=== PATIENT | male | born 1945 | race Caucasian/White ===

== ENCOUNTER 2017-01-04 15:00 | Inpatient (IN) | payer OTHER ==
[~2017-01-04] VITALS: Ht 182.8 cm; Wt 76.4 kg
--- NOTE | ~2017-01-04 | PR ---
[place], [place] PROGRESS NOTE NAME: KAREN HANSON UNIT #: [id number] ROOM: 403 DOCTOR: MARV BALLARD,ZAC BIRTHDATE: [birth year] DOS: 01/06/2017 ADDENDUM This note is an addendum to the note dictated by Dr. Colt Kimball. I personally examined and assessed the patient. Case was discussed with Dr. Kimball. Dr. Kimball's examination and assessment reflects my work. OBJECTIVE: HEART: The focused cardiac examination of the heart with regular rate and rhythm, no S3. Grade 1/6 systolic murmur. EXTREMITIES: Showed no edema. IMPRESSION: 1. Near syncope, possibly due to hypotension. 2. Cardiomyopathy, stable. 3. Hypotension, borderline. 4. Status post AICD with normal function. 5. CAD. RECOMMENDATIONS: 1. We will decrease lisinopril to 10 mg and monitor blood pressures at home. 2. If the systolic blood pressure less than 100, we will wide his Coreg and lisinopril. 3. We will follow with Dr. Maravilla or [facility] in a couple of weeks and also with Dr. Juarez for the ICD followups. ZAC FAIR MD CM:PNTRANS [id number] ZAC FAIR MD 01/08/17 1459 interface
[2017-01-04 15:00] VITALS: BP 138/87
[~2017-01-04 15:00] MED LIST: ATENOLOL50 MG PO; CRESTOR40 MG PO; LISINOPRIL5 MG PO; LORAZEPAM0.5 MG PO; MIRTAZAPINE15 M1 PO; NITROGLYCERIN0.4 MG PO; NORVASC10 MG PO; OMEPRAZOLE DR20 M1 PO; ZOLOFT100 MG PO
[2017-01-04 15:30] VITALS: BP 128/84
[2017-01-04 15:40] LABS: BASO # 0.1 10*3/uL (0.0-0.1); BASO % 1.1 % (0.0-1.0); EOS # 0.1 10*3/uL (0.0-0.4); HEMATOCRIT 34.2 % (42.0-52.0); HEMOGLOBIN 11.2 g/dl (14.0-18.0); LYMPH # 1.3 10*3/uL (1.3-4.4); LYMPH % 29.9 % (27.0-41.0); MEAN CELL VOLUME 82.8 fl (80.0-94.0); MEAN CORPUSCULAR HGB 27.1 pg (27.0-31.0); MEAN CORPUSCULAR HGB CONC 32.7 g/dl (33.0-37.0); MONO # 0.5 10*3/uL (0.1-1.0); MONO % 12.2 % (3.0-9.0); NEUT # 2.4 10*3/uL (2.3-7.9); NEUT % 54.6 % (47.0-73.0); PLATELET COUNT AUTOMATED 136 10*3/uL (130-400); RED BLOOD COUNT 4.13 10*6/uL (4.50-5.90); RED CELL DISTRI WIDTH 15.9 % (0-14.5); WHITE BLOOD COUNT 4.4 10*3/uL (4.8-10.8)
[2017-01-04 15:49] LABS: PROTHROMBIN TIME 10.6 SECONDS (9.0-12.4)
[2017-01-04 15:56] LABS: ALBUMIN 3.7 gm/dl (3.1-4.5); ALKALINE PHOSPHATASE 63 U/L (45-117); BILIRUBIN, TOTAL 0.4 mg/dl (0.2-1.0); BUN 19 mg/dl (7-24); CARBON DIOXIDE 25 mmol/L (21-32); CHLORIDE 106 mmol/L (98-107); CKMB 2.9 ng/ml (0.5-3.6); CPK 143 U/L (39-308); EST GLOM FILT AFRICAN AMERICAN > 60 ml/min; GLUCOSE 77 mg/dL (65-99); MAGNESIUM 2.4 mg/dL (1.5-2.1); POTASSIUM 4.3 mmol/L (3.5-5.1); SGOT/AST 14 IU/L (3-35); SGPT/ALT 21 U/L (12-78); SODIUM 140 mmol/L (136-145); TOTAL PROTEIN 7.3 gm/dL (6.4-8.2); TROPONIN I 0.021 ng/ml (<0.045)
[2017-01-04 15:57] LABS: C-REACTIVE PROTEIN < 0.29 MG/DL (0-0.3)
[2017-01-04 16:04] LABS: BILIRUBIN NEGATIVE (NEGATIVE); BLOOD NEGATIVE (NEGATIVE); CLARITY CLEAR (CLEAR); COLOR YELLOW (YELLOW); GLUCOSE NEGATIVE (NEGATIVE); KETONE NEGATIVE (NEGATIVE); LEUKO ESTERASE NEGATIVE (NEGATIVE); NITRITE NEGATIVE (NEGATIVE); PH 6.5 (5.0-9.0); PROTEIN NEGATIVE (NEGATIVE); UROBILINOGEN 0.2 E.U./dl (0.2-1.0)
[2017-01-04 16:23] LABS: EPITHELIAL CELLS 0-2; RBC 0-2 rbc/hpf (0-2); URINE REFLEX COMMENT NO (NO); WBC 0-2 wbc/hpf (0-5)
[2017-01-04] MEDS ORDERED: CARVEDILOL12.5 MG PO (16:31)
[2017-01-04] MEDS ORDERED: ALDACTONE25 M1 PO (16:31)
[2017-01-04] MEDS ORDERED: FUROSEMIDE20 M1 PO (16:32)
[2017-01-04] MEDS ORDERED: CRESTOR40 M1 PO (16:32)
[2017-01-04] MEDS ORDERED: ELIQUIS5 M1 PO (16:33)
[2017-01-04] MEDS ORDERED: FERROUS GLUCON324 M1 PO (16:33)
[2017-01-04] MEDS ORDERED: KLOR-CON 1010 ME1 PO (16:34)
[2017-01-04] MEDS ORDERED: VENTOLIN H0.09 MG/AC INH (16:35)
[2017-01-04] MEDS ORDERED: MASON NATURAL1000 IU PO (16:35)
[2017-01-04 16:56] VITALS: BP 138/84
[2017-01-04 17:23] VITALS: BP 144/78
[2017-01-04 20:00] VITALS: BP 124/66
[2017-01-05] VITALS: BP 109/73
[2017-01-05 04:00] VITALS: BP 110/75
[2017-01-05 04:22] LABS: BASO % 1.1 % (0.0-1.0); EOS # 0.1 10*3/uL (0.0-0.4); EOS % 2.8 % (1.0-4.0); HEMATOCRIT 34.8 % (42.0-52.0); HEMOGLOBIN 10.9 g/dl (14.0-18.0); LYMPH # 1.3 10*3/uL (1.3-4.4); LYMPH % 35.6 % (27.0-41.0); MEAN CELL VOLUME 85.3 fl (80.0-94.0); MEAN CORPUSCULAR HGB 26.7 pg (27.0-31.0); MEAN CORPUSCULAR HGB CONC 31.3 g/dl (33.0-37.0); MEAN PLATELET VOLUME 10.1 fl (9.6-12.3); MONO # 0.5 10*3/uL (0.1-1.0); MONO % 12.7 % (3.0-9.0); NEUT # 1.7 10*3/uL (2.3-7.9); NEUT % 47.8 % (47.0-73.0); PLATELET COUNT AUTOMATED 119 10*3/uL (130-400); RED BLOOD COUNT 4.08 10*6/uL (4.50-5.90); RED CELL DISTRI WIDTH 15.9 % (0-14.5); WHITE BLOOD COUNT 3.5 10*3/uL (4.8-10.8)
[2017-01-05 04:37] LABS: BUN 19 mg/dl (7-24); CARBON DIOXIDE 30 mmol/L (21-32); CHLORIDE 109 mmol/L (98-107); EST GLOM FILT AFRICAN AMERICAN > 60 ml/min; GLUCOSE 73 mg/dL (65-99); POTASSIUM 4.7 mmol/L (3.5-5.1); SODIUM 146 mmol/L (136-145)
[2017-01-05 04:40] LABS: CHOLESTEROL 126 mg/dL (<200); HDL CHOLESTEROL 52 mg/dl (40-60); LDL CHOLESTEROL 53 mg/dL (9-159); TRIGLYCERIDES 106 mg/dl (<150); VLDL CHOLESTEROL 21 mg/dL (6-40)
[2017-01-05 04:47] LABS: FREE T4 0.73 ng/dl (0.76-1.46)
[2017-01-05 07:08] LABS: VITAMIN D, 25-HYDROXY 15.6 ng/mL (30-100)
[2017-01-05 07:09] LABS: FOLIC ACID 13.19 ng/mL (>5.38)
[2017-01-05 08:00] VITALS: BP 120/88
[2017-01-05 12:00] VITALS: BP 117/77
[2017-01-05 16:00] VITALS: BP 93/62
[2017-01-05 20:00] VITALS: BP 134/71
[2017-01-06] VITALS: BP 137/82
[2017-01-06 06:58] LABS: BASO % 0.8 % (0.0-1.0); EOS # 0.1 10*3/uL (0.0-0.4); HEMATOCRIT 34.8 % (42.0-52.0); HEMOGLOBIN 11.1 g/dl (14.0-18.0); LYMPH # 1.1 10*3/uL (1.3-4.4); LYMPH % 21.9 % (27.0-41.0); MEAN CELL VOLUME 84.1 fl (80.0-94.0); MEAN CORPUSCULAR HGB 26.8 pg (27.0-31.0); MEAN CORPUSCULAR HGB CONC 31.9 g/dl (33.0-37.0); MEAN PLATELET VOLUME 10.7 fl (9.6-12.3); MONO # 0.6 10*3/uL (0.1-1.0); NEUT # 3.2 10*3/uL (2.3-7.9); NEUT % 64.3 % (47.0-73.0); PLATELET COUNT AUTOMATED 122 10*3/uL (130-400); RED BLOOD COUNT 4.14 10*6/uL (4.50-5.90); RED CELL DISTRI WIDTH 16.1 % (0-14.5)
[2017-01-06 07:28] LABS: BUN 18 mg/dl (7-24); CARBON DIOXIDE 28 mmol/L (21-32); CHLORIDE 108 mmol/L (98-107); EST GLOM FILT AFRICAN AMERICAN > 60 ml/min; GLUCOSE 84 mg/dL (65-99); POTASSIUM 4.3 mmol/L (3.5-5.1); SODIUM 144 mmol/L (136-145)
[2017-01-06 08:00] VITALS: BP 137/85
[2017-01-06 12:00] VITALS: BP 96/62
[2017-01-06] MEDS ORDERED: LISINOPRIL20 MG PO (13:25)
== END 2017-01-06 15:00 | disposition home or self-care (01) | DRG 314 ==
LOC: ED 15:00 → EDHOLD 16:26 → 4E 16:26
PROVIDERS: Emergency Medicine; Internal Medicine Hospice and Palliative Medicine
DX: I95.9 Hypotension, unspecified (principal); N17.0 Acute kidney failure with tubular necrosis; E87.0 Hyperosmolality and hypernatremia; D61.818 Other pancytopenia; E83.41 Hypermagnesemia; D69.6 Thrombocytopenia, unspecified; I50.32 Chronic diastolic (congestive) heart failure; I48.2 Chronic atrial fibrillation; I25.10 Atherosclerotic heart disease of native coronary artery without angina pectoris; D50.9 Iron deficiency anemia, unspecified; I10 Essential (primary) hypertension; E78.00 Pure hypercholesterolemia, unspecified; K21.9 Gastro-esophageal reflux disease without esophagitis; F41.1 Generalized anxiety disorder; E55.9 Vitamin D deficiency, unspecified; F32.9 Major depressive disorder, single episode, unspecified; D72.819 Decreased white blood cell count, unspecified; D64.9 Anemia, unspecified; Z95.5 Presence of coronary angioplasty implant and graft; Z95.0 Presence of cardiac pacemaker; Z87.891 Personal history of nicotine dependence; Z82.49 Family history of ischemic heart disease and other diseases of the circulatory system; Z88.8 Allergy status to other drugs, medicaments and biological substances; Z79.51 Long term (current) use of inhaled steroids; Z79.899 Other long term (current) drug therapy

== ENCOUNTER → 2020-10-11 | Outpatient (CLI) | payer OTHER ==
[~2020-10-11] MED LIST changes: +ALDACTONE25 M1 PO; +CARVEDILOL12.5 MG PO; +CRESTOR40 M1 PO; +ELIQUIS5 M1 PO; +FERROUS GLUCON324 M1 PO; +FUROSEMIDE20 M1 PO; +KLOR-CON 1010 ME1 PO; +LISINOPRIL20 MG PO; +MASON NATURAL1000 IU PO; +VENTOLIN H0.09 MG/AC INH
== END | disposition home or self-care (01) ==
LOC: CT 09:54
PROVIDERS: ATTEND Nurse Practitioner
DX: I71.2 Thoracic aortic aneurysm, without rupture (principal); I71.4 Abdominal aortic aneurysm, without rupture; I70.0 Atherosclerosis of aorta; I51.7 Cardiomegaly; I25.10 Atherosclerotic heart disease of native coronary artery without angina pectoris; K44.9 Diaphragmatic hernia without obstruction or gangrene

== ENCOUNTER → 2021-01-02 | Outpatient (CLI) | payer OTHER | END | disposition home or self-care (01) | LOC: CT 14:00 | PROVIDERS: ATTEND Nurse Practitioner | DX: I65.23 Occlusion and stenosis of bilateral carotid arteries (principal); I67.2 Cerebral atherosclerosis ==

== ENCOUNTER 2021-03-13 14:58 | Emergency (ER) | payer OTHER ==
[~2021-03-13] VITALS: Ht 182.8 cm; Wt 83.5 kg
[2021-03-13 15:02] VITALS: BP 166/101
[2021-03-13 15:30] VITALS: BP 123/67
[2021-03-13 16:00] VITALS: BP 133/70
[2021-03-13 16:30] VITALS: BP 125/67
[2021-03-13 16:37] LABS: BASO # 0.1 10*3/uL (0.0-0.1); EOS # 0.1 10*3/uL (0.0-0.4); EOS % 1.8 % (1.0-4.0); HEMATOCRIT 34.8 % (42.0-52.0); MEAN CELL VOLUME 81.7 fl (80.0-94.0); MEAN CORPUSCULAR HGB 24.6 pg (27.0-31.0); MEAN CORPUSCULAR HGB CONC 30.2 g/dl (33.0-37.0); MEAN PLATELET VOLUME 11.7 fl (9.6-12.3); MONO # 0.6 10*3/uL (0.1-1.0); MONO % 13.1 % (3.0-9.0); NEUT # 3.1 10*3/uL (2.3-7.9); NEUT % 63.9 % (47.0-73.0); PLATELET COUNT AUTOMATED 162 10*3/uL (130-400); RED BLOOD COUNT 4.26 10*6/uL (4.50-5.90); RED CELL DISTRI WIDTH 15.9 % (0-14.5); WHITE BLOOD COUNT 4.9 10*3/uL (4.8-10.8)
[2021-03-13 17:00] VITALS: BP 101/59
[2021-03-13 17:01] LABS: BUN 33 mg/dl (7-24); CHLORIDE 109 mmol/L (98-107); POTASSIUM 4.6 mmol/L (3.5-5.1); SODIUM 139 mmol/L (136-145)
[2021-03-13 17:02] LABS: TROPONIN I < 0.015 ng/ml (<0.045)
== END 2021-03-13 17:48 | disposition home or self-care (01) ==
LOC: ED 14:58 → EDHOLD 16:24 → ED 17:48
PROVIDERS: Emergency Medicine
DX: I65.22 Occlusion and stenosis of left carotid artery (principal); I25.10 Atherosclerotic heart disease of native coronary artery without angina pectoris; I48.20 Chronic atrial fibrillation, unspecified; I11.0 Hypertensive heart disease with heart failure; I50.9 Heart failure, unspecified; Z87.891 Personal history of nicotine dependence; Z95.5 Presence of coronary angioplasty implant and graft; Z79.899 Other long term (current) drug therapy; Z88.8 Allergy status to other drugs, medicaments and biological substances